=== PATIENT | male | born 1955 | race Caucasian/White ===

== ENCOUNTER 2018-10-27 12:36 | Emergency (ER) | payer OTHER, BC ==
--- NOTE | 2018-10-27 12:42 | ER Report ---
History and Physical Time Seen By MD: 12:41 HPI/ROS CHIEF COMPLAINT: Coughing and jaw pain HISTORY OF PRESENT ILLNESS: This is a 63-year-old male who presents to emergency department for a coughing fit and jaw pain. Patient has a history of 2 cardiac bypasses, 7 stents. States that he's had 3 recurrent semi-productive coughing episodes since June, the most recent one has been going on for about a week, he does live in [facility]. States yesterday he saw his furnace fitter, they did a CT of his chest, "they didn't find anything however they did start me on antibiotics and prednisone". 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 His pain has basically resolved. He does use a BiPAP at night. He denies chest pain or shortness of breath at this time. No nausea or vomiting. No diaphoresis. No headaches or visual changes. No rashes. REVIEW OF SYSTEMS: Constitutional: No fever, no chills. Eyes: No discharge. ENT: No sore throat. Cardiovascular: As above. Respiratory: As above. Gastrointestinal: No abdominal pain, no vomiting. Genitourinary: No hematuria. Musculoskeletal: As above. Skin: No rashes. Neurological: No headache. Allergies: Uncoded Allergies: LUMIGEN (Allergy, Mild, 10/27/18) Home Meds Reported Medications Cyclobenzaprine Hcl (CYCLOBENZAPRINE HCL) 10 Mg Tablet, 10 MG PO TID, #9 TAB 10/27/18 Glucosa Christine 2KCL/Chondroitin Christine (GLUCOSAMINE & CHONDROITIN CAP) 1 Each Capsule, 1 EACH PO DAILY, CAPSULE 10/27/18 Charlotte-3/Dha/Epa/Fish Oil (Fish Oil 1,000 mg Softgel) 1,000 Mg (120 Mg-180 Mg) Capsule, 1000 MG PO DAILY 10/27/18 Aspirin (ASPIR 81) 81 Mg Tablet.dr, 81 MG PO QDAY, TAB 10/27/18 [Humalin R 500] No Conflict Check, 65 UNITS SC HS 10/27/18 [Humalin R 500] No Conflict Check, 135 UNITS SC AM 10/27/18 Carvedilol (CARVEDILOL) 12.5 Mg Tablet, 12.5 MG PO BID, #10 TAB 10/27/18 Losartan Potassium (LOSARTAN POTASSIUM) 25 Mg Tablet, 25 MG PO QDAY 10/27/18 Levothyroxine Sodium (LEVOTHYROXINE SODIUM) 50 Mcg Tablet, 50 MCG PO QDAY, TAB 10/27/18 Rosuvastatin Calcium (CRESTOR) 20 Mg Tablet, 20 MG PO HS 10/27/18 Pantoprazole Sodium (PANTOPRAZOLE SODIUM) 40 Mg Tablet.dr, 40 MG PO QDAY, TAB.SR 10/27/18 Furosemide (FUROSEMIDE) 40 Mg Tablet, 1 TAB PO EVERY OTHER DAY, TAB 10/27/18 Calcitriol (CALCITRIOL) 0.5 Mcg Capsule, 0.25 MCG PO M,F, CAPSULE 10/27/18 Amitriptyline Hcl (AMITRIPTYLINE HCL) 25 Mg Tablet, 25 MG PO QHS, #5 TAB 10/27/18 Empagliflozin (Jardiance) 10 Mg Tablet, 10 MG PO DAILY 10/27/18 Discontinued Reported Medications Insulin Glargine,Hum.rec.anlog (Toujeo Max Solostar) 300 Unit/Ml (3 Ml) Insuln.pen, 50 10/27/18 Past Medical/Surgical History Patient has a past medical and surgical history of bypass surgery 2, 7 coronary artery stents, cholecystectomy, type II diabetes. Reviewed Nurses Notes: Yes Constitutional Vital Sign - Last 24 Hours 10/27/18 10/27/18 10/27/18 10/27/18 12:39 13:15 14:00 15:00 Temp 98.8 Pulse 104 101 Resp 16 B/P (MAP) 161/53 147/74 (98) 168/80 (109) 154/63 (93) Pulse Ox 85 93 O2 Delivery Room Air Nasal Cannula O2 Flow Rate 2 10/27/18 10/27/18 10/27/18 10/27/18 15:00 17:05 17:30 18:00 Pulse 93 99 89 Resp 18 B/P (MAP) 155/69 (97) 137/71 (93) 134/72 (92) 156/73 (100) Pulse Ox 89 90 O2 Delivery Nasal Cannula Nasal Cannula O2 Flow Rate 0.5 0.5 5/10/27/18 10/27/18 18:30 18:35 19:05 Pulse 76 85 80 Resp 14 29 19 B/P (MAP) 136/70 (92) Physical Exam General Appearance: The patient is alert, has no immediate need for airway protection and no signs of toxicity. Eyes: Pupils equal and round no pallor or injection. ENT, Mouth: Mucous membranes are moist. Respiratory: There are no retractions, lungs are clear to auscultation. Cardiovascular: Regular rate and rhythm. Systolic murmur, no clicks or rubs. Gastrointestinal: Abdomen is round, soft and non tender, no masses, bowel sounds normal. Neurological: Alert and oriented 4. Moving all extremities. Following all commands. No focal neuro deficits. Skin: Warm and dry, no rashes. Musculoskeletal: Neck is supple non tender. Extremities are nontender, nonswollen and have full range of motion. DIFFERENTIAL DIAGNOSIS: After history and physical exam differential diagnosis was considered for chest pain including but not limited to myocardial ischemia, pericarditis pulmonary embolus, chest wall pain, pleural inflammation and pulmonary infectious causes. Medical Decision Making Data Points Result Diagram: 10/27/18 1251 10/27/18 1251 Laboratory Hematology Test 10/27/18 12:51 10/27/18 17:00 Red Blood Count 5.95 M/uL (4.00-5.60) Mean Corpuscular Volume 92.2 fL (80.0-96.0) Mean Corpuscular Hemoglobin 30.6 pg (26.0-33.0) Mean Corpuscular Hemoglobin Concent 33.2 g/dL (32.0-36.0) Red Cell Distribution Width 13.3 % (11.5-14.5) Mean Platelet Volume 8.2 fL (7.2-11.1) Neutrophils (%) (Auto) 85.7 % (39.4-72.5) Lymphocytes (%) (Auto) 10.6 % (17.6-49.6) Monocytes (%) (Auto) 3.1 % (4.1-12.4) Eosinophils (%) (Auto) 0.0 % (0.4-6.7) Basophils (%) (Auto) 0.6 % (0.3-1.4) Nucleated RBC Relative Count (auto) 0.0 /100WBC Neutrophils # (Auto) 5.4 K/uL (2.0-7.4) Lymphocytes # (Auto) 0.7 K/uL (1.3-3.6) Monocytes # (Auto) 0.2 K/uL (0.3-1.0) Eosinophils # (Auto) 0.0 K/uL (0.0-0.5) Basophils # (Auto) 0.0 K/uL (0.0-0.1) Nucleated RBC Absolute Count (auto) 0.00 K/uL Prothrombin Time 12.1 seconds (12.0-14.4) Prothromb Time International Ratio 0.89 Activated Partial Thromboplast Time 30 seconds (23-35) Sodium Level 136 mmol/L (137-145) Potassium Level 4.5 mmol/L (3.5-5.0) Chloride Level 104 mmol/L (98-107) Carbon Dioxide Level 22 mmol/L (22-30) Blood Urea Nitrogen 18 mg/dl (9-21) Creatinine 1.00 mg/dl (0.66-1.25) Glomerular Filtration Rate Calc > 60.0 Random Glucose 348 mg/dl (75-110) Calcium Level 9.9 mg/dl (8.4-10.2) Total Bilirubin 0.5 mg/dl (0.2-1.3) Aspartate Amino Transf (AST/SGOT) 22 U/L (0-35) Alanine Aminotransferase (ALT/SGPT) 23 U/L (0-56) Alkaline Phosphatase 88 U/L (0-126) Total Protein 7.5 g/dl (6.3-8.2) Albumin 4.4 g/dl (3.5-5.0) Troponin I 0.455 ng/ml Chemistry Test 10/27/18 12:51 10/27/18 17:00 White Blood Count 6.3 k/uL (4.5-11.0) Red Blood Count 5.95 M/uL (4.00-5.60) Hemoglobin 18.2 g/dL (14.0-18.0) Hematocrit 54.8 % (42.0-52.0) Mean Corpuscular Volume 92.2 fL (80.0-96.0) Mean Corpuscular Hemoglobin 30.6 pg (26.0-33.0) Mean Corpuscular Hemoglobin Concent 33.2 g/dL (32.0-36.0) Red Cell Distribution Width 13.3 % (11.5-14.5) Platelet Count 174 K/uL (150-450) Mean Platelet Volume 8.2 fL (7.2-11.1) Neutrophils (%) (Auto) 85.7 % (39.4-72.5) Lymphocytes (%) (Auto) 10.6 % (17.6-49.6) Monocytes (%) (Auto) 3.1 % (4.1-12.4) Eosinophils (%) (Auto) 0.0 % (0.4-6.7) Basophils (%) (Auto) 0.6 % (0.3-1.4) Nucleated RBC Relative Count (auto) 0.0 /100WBC Neutrophils # (Auto) 5.4 K/uL (2.0-7.4) Lymphocytes # (Auto) 0.7 K/uL (1.3-3.6) Monocytes # (Auto) 0.2 K/uL (0.3-1.0) Eosinophils # (Auto) 0.0 K/uL (0.0-0.5) Basophils # (Auto) 0.0 K/uL (0.0-0.1) Nucleated RBC Absolute Count (auto) 0.00 K/uL Prothrombin Time 12.1 seconds (12.0-14.4) Prothromb Time International Ratio 0.89 Activated Partial Thromboplast Time 30 seconds (23-35) Glomerular Filtration Rate Calc > 60.0 Calcium Level 9.9 mg/dl (8.4-10.2) Total Bilirubin 0.5 mg/dl (0.2-1.3) Aspartate Amino Transf (AST/SGOT) 22 U/L (0-35) Alanine Aminotransferase (ALT/SGPT) 23 U/L (0-56) Alkaline Phosphatase 88 U/L (0-126) Total Protein 7.5 g/dl (6.3-8.2) Albumin 4.4 g/dl (3.5-5.0) Troponin I 0.455 ng/ml Coagulation Test 10/27/18 12:51 Prothrombin Time 12.1 seconds Prothromb Time International Ratio 0.89 Activated Partial Thromboplast Time 30 seconds EKG/Imaging EKG Interpretation 12 lead EKG: Time of EKG 1245. Rhythm: Normal sinus rhythm, ventricular rate 97 bpm. Whatley: normal QRS: Prolonged QT. ST segments: No ST depression or elevation identified. No previous EKGs for comparison. 12 lead EKG: Repeat EKG 1555. Rhythm: Normal sinus rhythm, ventricular rate 92 bpm. Whatley: normal QRS: Prolonged QT. ST segments: No ST depression or elevation identified. However, slightly more flattened T waves on the repeat EKG. [ ] Imaging PATIENT NAME: Ilya Lopes : 1955 MR: [id number] V: [id number] EXAM DATE: ORDERING PHYSICIAN: ANTONIO MANDEL TECHNOLOGIST: Location: [facility] Patient: Ilya Lopes : 1955 Visit/Account:[id number] Date of Sevice: 10/27/2018 CHEST PA LAT COMPARISON: None. HISTORY: Chest Pain FINDINGS: CARDIAC/VASC: No cardiac silhouette abnormality or cardiomegaly. Intact sternotomy wires. Mediastinal clips indicative of prior CABG. Unremarkable pulmonary vasculature. MEDIASTINUM: No visible mass or adenopathy. LUNGS/PLEURA: No pneumothorax. No significant pulmonary parenchymal abnormalities. No effusion or pleural thickening. BONES: No fracture or visible bony lesion. Mild thoracic spine degenerative changes. OTHER: Cholecystectomy clips in the right upper quadrant.. IMPRESSION: No acute cardiopulmonary process. Prior CABG and cholecystectomy. Report Dictated By: Jose Raul Marin at 10/27/2018 1:40 PM Report E-Signed By: Jose Raul Marin at 10/27/2018 1:41 PM WSN:[id number] ED Course/Re-evaluation Clinical Indication for ER IV: Hydration, IV Access ED Course The patient was admitted to room. A history of physical were obtained. Differential diagnoses were considered. An IV was started. A CBC, CMP and troponin were obtained. 1 L normal saline bolus was given. CBC showing rbc's 5.9 5, H&H 18.2 and 54, mild left shift, chemistry showing glucose 348, initial troponin negative. Two-view chest x-ray negative for any acute cardiopulmonary process. Due to the initial results with the patient, I did recommend a repeat troponin with his significant history and comorbidities. Patient was agreeable. Patient denies pain at this time. Repeat troponin 0.077, I did discuss this with the patient as well as the patient's cardiology team in [facility], after a lengthy discussion with cardiology, I did repeat the troponin, the patient was agreeable with this, the repeat troponin came back positive at 0.455. I did speak with the medical billing supervisor at [facility] as well as the hospitalist Dr. Blanton, they have accepted the patient in the services of the hospitalist and cardiology. Patient will be started on a heparin drip per hospitalist. Patient is agreeable with this plan of care. Patient remained pain- free while in the emergency department. 10/27/2018 3:54:27 pm repeat troponin 0.077, this is from a previously negative troponin, patient remains pain-free at this time. A repeat EKG, compare to the initial EKG. Then we'll contact his cardiology group in [place], review the case, patient is aware. ED times to him I did speak with the on-call medical billing supervisor in [place], an associate of the patient's medical billing supervisor, we did review the patient's case, he suggested either an admission for observation or week and did repeat a troponin and an hour if unchanged or improving discharge the patient for follow-up with a likely stress test in the next 1-2 days. If positive then we can make arrangements to transfer the patient. Patient is agreeable with a repeat troponin. 10/27/2018 5:38:10 pm repeat troponin 0.455, I did discuss the "positive", troponin with the patient, I did tell him my recommendation is to transfer him to an acute care hospital that has interventional cardiology, the closest facility would be [place], the patient's is unsure what to do, I did tell him that with the symptoms he was having, and the elevated troponin I do highly recommend transfer, he's somewhat reluctant, he states he needs a few minutes to think. The patient did agree to a ground ambulance transfer, initially we did attempt transfer to [facility] however they did not have beds available at this time, discussed this with patient, he has agreed to a transfer to the [facility] in [facility]. Decision to Disposition Date: October 27, 2018 Decision to Disposition Time: 18:36 Depart Departure Latest Vital Signs Vital Signs Date Time Temp Pulse Resp B/P (MAP) Pulse Ox O2 Delivery O2 Flow Rate FiO2 10/27/18 19:05 80 19 10/27/18 18:30 136/70 (92) 10/27/18 17:05 90 Nasal Cannula 0.5 10/27/18 12:39 98.8 Impression: Primary Impression: Elevated troponin Additional Impression: NSTEMI (non-ST elevated myocardial infarction) Condition: Improved Disposition: XFER TO ACUTE CARE HOSPITAL ([facility]) Problem Qualifiers ANTONIO MANDELP-BC October 27, 2018 12:42
[2018-10-27] MEDS ORDERED: NS(*) 0.9% 1000 ML BAG 1,000 ML IV ONE (12:59)
[2018-10-27] MEDS ORDERED: ASPIRIN 81 MG CHEW PO ONE (13:00)
[2018-10-27 13:09] LABS: PLATELET COUNT, AUTOMATED 174 K/uL (150-450)
--- NOTE | 2018-10-27 13:46 | RADIOLOGY IMAGING REPORT ---
FACILITY: [facility] PATIENT NAME: Ilya Lopes : 1955 MR: [id number] V: [id number] EXAM DATE: ORDERING PHYSICIAN: ANTONIO MANDEL TECHNOLOG[place]: [place] [facility] [place] Ilya Lopes : 1955 Visit/Account:[id number] Date of Sevice: 10/27/2018 CHEST PA LAT COMPARISON: None. HISTORY: Chest Pain FINDINGS: CARDIAC/VASC: No cardiac silhouette abnormality or cardiomegaly. Intact sternotomy wires. Medias tinal clips indicative of prior CABG. Unremarkable pulmonary vasculature. MEDIASTINUM: No visible mass or adenopathy. LUNGS/PLEURA: No pneumothorax. No significant pulmonary parenchymal abnormalities. No effusion or p leural thickening. BONES: No fracture or visible bony lesion. Mild thoracic spine degenerative changes. OTHER: Cholecystectomy clips in the right upper quadrant.. IMPRESSION: No acute cardiopulmonary process. Prior CABG and cholecystectomy. Report Dictated By: Jose Raul Marin at 10/27/2018 1:40 PM Report E-Signed By: Jose Raul Marin at 10/27/2018 1:41 PM WSN:[id number]
[2018-10-27] MEDS ORDERED: [UNRECOGNIZED DRUG - OTHER] IV ONE (18:10)
[2018-10-27 18:30] VITALS: BP 136/70
[2018-10-27] MEDS ORDERED: HEPARIN* SOD/D5W 25000 U/500ML 500 ML IV ONE (18:30)
[2018-10-27 18:50] LABS: INR 0.89
[2018-10-27] MEDS ORDERED: ROSU20TA24 PO (19:01)
[2018-10-27] MEDS ORDERED: HUMALIN R SC ×2 (19:01)
[2018-10-27] MEDS ORDERED: ASPI-1471 PO (19:01)
[2018-10-27] MEDS ORDERED: INSU300I3 (19:01)
[2018-10-27] MEDS ORDERED: EMPA10TA PO (19:01)
[2018-10-27] MEDS ORDERED: CARV12.578 PO (19:01)
[2018-10-27] MEDS ORDERED: LEVO50TA86 PO (19:01)
[2018-10-27] MEDS ORDERED: PANT40TA65 PO (19:01)
[2018-10-27] MEDS ORDERED: FURO-47 PO (19:01)
[2018-10-27] MEDS ORDERED: CALC0.5C5 PO (19:01)
[2018-10-27] MEDS ORDERED: CYCL10TA29 PO (19:01)
[2018-10-27] MEDS ORDERED: LOSA25TA57 PO (19:01)
[2018-10-27] MEDS ORDERED: GLUC-198 PO (19:01)
[2018-10-27] MEDS ORDERED: AMIT-106 PO (19:01)
[2018-10-27] MEDS ORDERED: OMEG10007 PO (19:01)
--- NOTE | 2018-10-27 22:39 | EKG ---
FACILITY: [facility] PATIENT NAME: DAVID FANG : [id number] MR: [id number] V: [id number] EXAM DATE: ORDERING PHYSICIAN: ANTONIO MANDEL TECHNOLOGIST: BECKY Test Reason : SOB Blood Pressure : / mmHG Vent. Rate : 097 BPM Atrial Rate : 097 BPM P-R Int : 200 ms QRS Dur : 114 ms QT Int : 394 ms P-R-T Axes : 054 -60 061 degrees QTc Int : 500 ms Normal sinus rhythm Left anterior fascicular block Inferior infarct , age undetermined Prolonged QT Abnormal ECG No previous ECGs available Confirmed by Kedar Rosales ([id number]) on 10/28/2018 7:52:38 AM Referred By: WANG Confirmed By:Kedar Nick
--- NOTE | 2018-10-27 22:39 | EKG ---
FACILITY: [facility] PATIENT NAME: DAVID FANG : [id number] MR: [id number] V: [id number] EXAM DATE: ORDERING PHYSICIAN: ANTONIO MANDEL TECHNOLOGIST: BECKY Test Reason : REPEAT Blood Pressure : / mmHG Vent. Rate : 092 BPM Atrial Rate : 092 BPM P-R Int : 194 ms QRS Dur : 116 ms QT Int : 400 ms P-R-T Axes : 062 -26 072 degrees QTc Int : 494 ms Normal sinus rhythm Nonspecific T wave abnormality Prolonged QT Abnormal ECG When compared with ECG of 27-OCT-2018 12:45, No significant change was found Confirmed by Kedar Rosales ([id number]) on 10/28/2018 7:53:01 AM Referred By: ANTONIO Confirmed By:Kedar Nick
== END 2018-10-27 19:47 | disposition short-term general hospital (02) ==
LOC: ER 12:44
DX: I21.4 Non-ST elevation (NSTEMI) myocardial infarction (principal); R79.89 Other specified abnormal findings of blood chemistry
CPT/HCPCS: 71046; 84484; 85025; 85610; 85730; 93005; 96361; 96365; 99285; J1644; J7030; 82040; 82247; 82310; 82374; 82435; 82565; 82947; 84075; 84132; 84155; 84295; 84450; 84460; 84520

== ENCOUNTER → 2018-10-27 | Outpatient (CLI) | payer OTHER, BC ==
[~2018-10-27] MED LIST: AMIT-106 PO; ASPI-1471 PO; CALC0.5C5 PO; CARV12.578 PO; CYCL10TA29 PO; EMPA10TA PO; FURO-47 PO; GLUC-198 PO; HUMALIN R SC; INSU300I3; LEVO50TA86 PO; LOSA25TA57 PO; OMEG10007 PO; PANT40TA65 PO; ROSU20TA24 PO
== END ==
LOC: AMB 19:31
PROVIDERS: ATTEND Nurse Practitioner
DX: R79.89 Other specified abnormal findings of blood chemistry (principal); R20.0 Anesthesia of skin
CPT/HCPCS: A0425; A0426